=== PATIENT | male | born 1975 | race Caucasian/White ===

== ENCOUNTER 2018-11-22 05:24 | Emergency (ER) | payer MEDICAID ==
[~2018-11-22] VITALS: Ht 165.1 cm; Wt 79.5 kg
[2018-11-22 05:31] VITALS: Ht 165.1 cm; Wt 79.5 kg
[2018-11-22 07:41] LABS: BASOPHILS 0.2 % (0-2); HEMATOCRIT 45.8 % (42.0-54.0); HEMOGLOBIN 15.7 g/dL (13.5-17.5); IMMATURE GRANULOCYTES 0.3 % (0-5); LYMPHOCYTES 8.5 % (15-50); MCH 32.2 pg (26.0-34.0); MCHC 34.3 g/dL (31.0-37.0); MCV 93.9 fL (80.0-100.0); MEAN PLATELET VOLUME 10.2 fL (7.4-10.4); MONOCYTES 6.1 % (2-11); NEUTROPHILS 83.9 % (40-80); PLATELET COUNT 314 10x3/uL (130-400); RBC 4.88 10x6/uL (4.20-6.10); RDW 13.4 % (11.5-14.5); WBC 13.6 10x3/uL (4.8-10.8)
[2018-11-22 07:42] LABS: APPEARANCE SL CLDY (CLEAR); BILIRUBIN NEGATIVE (NEGATIVE); COLOR YELLOW (YELLOW); GLUCOSE NEGATIVE (NEGATIVE); KETONE NEGATIVE (NEGATIVE); NITRITE NEGATIVE (NEGATIVE); PROTEIN TRACE mg/dL (NEGATIVE); SPECIFIC GRAVITY 1.015 (1.005-1.020); UROBILINOGEN NORMAL (NORMAL)
[2018-11-22 07:43] LABS: ALKALINE PHOSPHATASE 78 U/L (46-116); ALT (SGPT) 19 U/L (10-68); AMYLASE - SERUM 58 U/L (25-115); BILIRUBIN - TOTAL 0.48 mg/dL (0.2-1.3); CALC OSMOLALITY 283 mosm/kg (275-300); CALCIUM 9.1 mg/dL (8.5-10.1); CARBON DIOXIDE 24.5 mmol/L (21.0-32.0); CHLORIDE - SERUM 104 mmol/L (98-107); CREATININE - SERUM 0.9 mg/dL (0.6-1.3); GLUCOSE 108 mg/dL (74-106); LIPASE 167 U/L (73-393); POTASSIUM - SERUM 4.1 mmol/L (3.5-5.1); PROTEIN - SERUM 8.2 g/dL (6.4-8.2); SODIUM 142 mmol/L (136-145); UREA NITROGEN 12 mg/dL (7-18); eGFR NON AFRICAN AMERICAN > 90 mL/min (90-120)
[2018-11-22 07:44] LABS: BACTERIA FEW /hpf (NONE SEEN); EPITHELIAL CELLS RARE /hpf (0-5); MUCUS <1+ /lpf (NONE SEEN); RED CELLS - URINE >50 /hpf (0-5); WHITE CELLS - URINE RARE /hpf (0-5)
[2018-11-22 08:22] VITALS: BP 142/90
== END 2018-11-22 08:15 | disposition home or self-care (01) ==
LOC: D.ER 05:24
PROVIDERS: Family Medicine
DX: N20.1 Calculus of ureter (principal)

== ENCOUNTER 2019-01-31 02:38 | Emergency (ER) | payer MEDICAID ==
[~2019-01-31] VITALS: Ht 165.1 cm; Wt 68.2 kg
[2019-01-31 02:46] VITALS: Ht 165.1 cm; Wt 68.2 kg
[2019-01-31 03:12] LABS: APPEARANCE CLOUDY (CLEAR); COLOR STRAW (YELLOW)
[2019-01-31 03:13] LABS: BACTERIA NONE SEEN /hpf (NONE SEEN); BILIRUBIN NEGATIVE (NEGATIVE); CALCIUM OXALATE CRYSTALS 0-5 /hpf (NONE SEEN); EPITHELIAL CELLS NSEEN /hpf (0-5); GLUCOSE NEGATIVE (NEGATIVE); KETONE SMALL mg/dL (NEGATIVE); NITRITE NEGATIVE (NEGATIVE); PROTEIN TRACE mg/dL (NEGATIVE); RED CELLS - URINE >50 /hpf (0-5); SPECIFIC GRAVITY 1.025 (1.005-1.020); UROBILINOGEN NORMAL (NORMAL); WHITE CELLS - URINE RARE /hpf (0-5)
[2019-01-31 03:26] LABS: UDS - AMPHET NEGATIVE QUAL (NEGATIVE); UDS - BARB NEGATIVE QUAL (NEGATIVE); UDS - BENZO NEGATIVE QUAL (NEGATIVE); UDS - COCAINE NEGATIVE QUAL (NEGATIVE); UDS - OPIATE NEGATIVE QUAL (NEGATIVE); UDS - PCP NEGATIVE QUAL (NEGATIVE); UDS - THC NEGATIVE QUAL (NEGATIVE)
[2019-01-31 03:37] LABS: BASOPHILS 0.3 % (0-2); EOSINOPHILS 4.7 % (0-7); HEMATOCRIT 47.2 % (42.0-54.0); HEMOGLOBIN 16.2 g/dL (13.5-17.5); IMMATURE GRANULOCYTES 0.3 % (0-5); LYMPHOCYTES 17.7 % (15-50); MCH 31.8 pg (26.0-34.0); MCHC 34.3 g/dL (31.0-37.0); MCV 92.7 fL (80.0-100.0); MEAN PLATELET VOLUME 9.8 fL (7.4-10.4); PLATELET COUNT 276 10x3/uL (130-400); RBC 5.09 10x6/uL (4.20-6.10); WBC 11.2 10x3/uL (4.8-10.8)
[2019-01-31] MEDS ORDERED: FLOMAX0.4 MG PO (03:46)
[2019-01-31] MEDS ORDERED: TYLENOL W/CODEI1 TAB PO (03:46)
[2019-01-31 03:52] LABS: ALBUMIN 3.8 g/dL (3.4-5.0); ALKALINE PHOSPHATASE 85 U/L (46-116); ALT (SGPT) 22 U/L (10-68); BILIRUBIN - TOTAL 0.27 mg/dL (0.2-1.3); CALC OSMOLALITY 288 mosm/kg (275-300); CALCIUM 9.1 mg/dL (8.5-10.1); CARBON DIOXIDE 24.7 mmol/L (21.0-32.0); CHLORIDE - SERUM 106 mmol/L (98-107); GLUCOSE 127 mg/dL (74-106); POTASSIUM - SERUM 3.8 mmol/L (3.5-5.1); PROTEIN - SERUM 7.8 g/dL (6.4-8.2); SODIUM 144 mmol/L (136-145); UREA NITROGEN 12 mg/dL (7-18); eGFR NON AFRICAN AMERICAN 87 mL/min (90-120)
[2019-01-31] MEDS ORDERED: HYDROCODON-ACE1 EAC7 PO (04:34)
[2019-01-31 04:40] VITALS: BP 141/92
== END 2019-01-31 04:41 | disposition home or self-care (01) ==
LOC: D.ER 02:38
PROVIDERS: Family Medicine
DX: N20.1 Calculus of ureter (principal)